=== PATIENT | female | born 1975 | race Caucasian/White ===

== ENCOUNTER 2020-07-23 07:50 | Outpatient (CLI) | payer OTHER, SELFPAY ==
--- NOTE | ~2020-07-23 | MM_ITS ---
EXAMINATION: MM screening ying BI w louie HISTORY: Screening mammogram TECHNIQUE: Craniocaudal and mediolateral oblique 3-D tomosynthesis images were obtained and synthetic 2-D images were generated. Right rotated lateral cc view. CAD analysis was submitted and interpreted . COMPARISON: No prior mammogram is available for comparison at this institution. BREAST PARENCHYMAL COMPOSITION: There are scattered areas of fibroglandular density. FINDINGS: There is no evidence of suspicious mass, calcification, or architectural distortion to sugg est malignancy in either breast. There has been no suspicious interval change. IMPRESSION: 1. No mammographic evidence of malignancy. 2. Recommend routine screening mammography in one year. BI-RADS Category 1: Negative Reviewed, dictated and finalized at location B.
== END 2020-07-23 07:51 | disposition home or self-care (01) ==
LOC: ANHIMG 07:52
PROVIDERS: PCP Family Medicine; Visit Provider Obstetrics & Gynecology
DX: Z12.31 Encounter for screening mammogram for malignant neoplasm of breast (principal)
CPT/HCPCS: 77063; 77067

== ENCOUNTER 2021-08-17 09:10 | Outpatient (CLI) | payer BC, SELFPAY ==
--- NOTE | ~2021-08-17 | MM_ITS ---
EXAMINATION: MM screening ying BI w louie HISTORY: Screening mammogram TECHNIQUE: Craniocaudal and mediolateral oblique 3-D tomosynthesis images were obtained and synthetic 2-D images were generated. CAD analysis was submitted and interpreted. COMPARISON: 07/23/2020 bilateral digital screening mammogram BREAST PARENCHYMAL COMPOSITION: The breasts are heterogeneously dense, which may obscure small masses . FINDINGS: Approximately 9 mm mass is noted in the subareolar area of the left breast. Diagnostic left mammogram and left breast ultrasound examination are recommended. Otherwise there is no evidence of suspicious mass, calcification, or architectural distortion to sugg est malignancy in either breast. There has been no other suspicious interval change. IMPRESSION: 1. New approximately 9 mm subareolar left breast mass 2. Diagnostic left mammogram and left breast ultrasound examination are recommended. BI-RADS Category 0: Incomplete: Needs additional imaging evaluation. Reviewed, dictated and finalized at location A. IMPRESSION: 1. New approximately 9 mm subareolar left breast mass 2. Diagnostic left mammogram and left breast ultrasound examination are recomme nded. BI-RADS Category 0: Incomplete: Needs additional imaging evaluation.
== END 2021-08-17 09:11 | disposition home or self-care (01) ==
LOC: ANHIMG 09:12
PROVIDERS: PCP Family Medicine; Visit Provider Obstetrics & Gynecology
DX: Z12.31 Encounter for screening mammogram for malignant neoplasm of breast (principal); R92.8 Other abnormal and inconclusive findings on diagnostic imaging of breast
CPT/HCPCS: 77063; 77067

== ENCOUNTER 2021-08-31 13:19 | Outpatient (CLI) | payer BC, SELFPAY ==
--- NOTE | ~2021-08-31 | MMUS_ITS ---
EXAMINATION: MM diagnostic ying LT w louie, US breast LT limited HISTORY: Approximately 9 mm new subareolar mass reported on 08/17/2021 screening mammogram TECHNIQUE: Additional 3-D tomosynthesis images of the left breast were performed and synthetic 2-D im ages were generated. CAD analysis was submitted and interpreted. High resolution subareolar left [facility] ultrasound was performed. COMPARISON: 08/17/2021 screening mammogram FINDINGS: MAMMOGRAPHIC FINDINGS: There is a new 12 mm subareolar mass, the margins are not completely circumscribed; this is new since 07/23/2020. ULTRASOUND: In the subareolar left breast there is a parallel circumscribed 8.7 x 14.4 mm multi septated cyst wit h through transmission posterior enhancement IMPRESSION: 1. Benign finding 2. Routine mammographic screening is recommended BI-RADS Category 2: Benign finding(s). Reviewed, dictated and finalized at location A. OSING MACHINE OPERATOR/TENDER IMPRESSION: 1. Benign finding 2. Routine mammographic screening is recommended BI-RADS Category 2: Benign finding(s).
== END 2021-08-31 13:20 | disposition home or self-care (01) ==
PROVIDERS: PCP Family Medicine; Visit Provider Obstetrics & Gynecology
DX: R92.8 Other abnormal and inconclusive findings on diagnostic imaging of breast (principal)
CPT/HCPCS: 76642; 77061; 77065; G0279

== ENCOUNTER 2022-10-20 07:36 | Outpatient (CLI) | payer BC, SELFPAY ==
--- NOTE | ~2022-10-20 | MM_ITS ---
EXAMINATION: MM screening [facility] BI w louie HISTORY: Screening mammogram TECHNIQUE: Craniocaudal and mediolateral oblique 3-D tomosynthesis images were obtained and synthetic 2-D images were generated. CAD analysis was submitted and interpreted. COMPARISON: 08/31/2021 diagnostic left mammogram and limited left breast ultrasound BREAST PARENCHYMAL COMPOSITION: The breasts are heterogeneously dense, which may obscure small masses . FINDINGS: There is a new circumscribed approximately 5 x 7.5 mm mass in the inner subareolar area of the right breast. Diagnostic right mammogram is right breast ultrasound examination are recommended. Otherwise there is no evidence of suspicious mass, calcification, or architectural distortion to sugg est malignancy in either breast. There has been no other suspicious interval change. IMPRESSION: 1. New approximately 5 x 7.5 mm circumscribed mass in the inner subareolar area of the right breast 2. Diagnostic right mammogram and right breast ultrasound examination are recommended. BI-RADS Category 0: Incomplete: Needs additional imaging evaluation. Reviewed, dictated and finalized at location A. ING MACHINE OPERATOR IMPRESSION: 1. New approximately 5 x 7.5 mm circumscribed mass in the inner subareolar area of the right breast 2. Diagnostic right mammogram and right breast ultrasound examination are recom mended. BI-RADS Category 0: Incomplete: Needs additional imaging evaluation.
== END 2022-10-20 07:37 | disposition home or self-care (01) ==
LOC: ANHIMG 07:37
PROVIDERS: PCP Family Medicine; Visit Provider Obstetrics & Gynecology
DX: Z12.31 Encounter for screening mammogram for malignant neoplasm of breast (principal); R92.8 Other abnormal and inconclusive findings on diagnostic imaging of breast
CPT/HCPCS: 77063; 77067

== ENCOUNTER 2022-11-10 13:48 | Outpatient (CLI) | payer BC, SELFPAY ==
--- NOTE | ~2022-11-10 | MMUS_ITS ---
EXAMINATION: MM diagnostic ying RT w louie, US breast RT limited HISTORY: Right breast mass on screening mammogram TECHNIQUE: Additional 3-D tomosynthesis images of the right breast were performed and synthetic 2-D i mages were generated. CAD analysis was submitted and interpreted. High resolution limited right breas t ultrasound was performed. COMPARISON: 10/20/2022, 08/17/2021, 07/23/2020 FINDINGS: MAMMOGRAPHIC FINDINGS: There is an 8 mm oval, obscured, mass at the 3:00 location adjacent to the nipple. No suspicious calc ification or architectural distortion are identified. ULTRASOUND: There is a 7 mm cyst at the 3:00 location adjacent to the nipple corresponding to the mammographic fi nding in question. IMPRESSION: 1. No mammographic or sonographic evidence of malignancy. 2. Recommend routine screening mammography in one year. BI-RADS Category 2: Benign finding(s). Reviewed, dictated and finalized at location A. HOME CAREGIVER IMPRESSION: 1. No mammographic or sonographic evidence of malignancy. 2. Recommend routine screening mammography in one year. BI-RADS Category 2: Benign finding(s).
== END 2022-11-10 13:49 | disposition home or self-care (01) ==
LOC: ANHIMG 13:52
PROVIDERS: PCP Family Medicine; Visit Provider Obstetrics & Gynecology
DX: R92.8 Other abnormal and inconclusive findings on diagnostic imaging of breast (principal)
CPT/HCPCS: 76642; 77061; 77065; G0279

== ENCOUNTER 2023-12-27 15:03 | Outpatient (CLI) | payer BC, SELFPAY ==
--- NOTE | ~2023-12-27 | MM_ITS ---
EXAMINATION: MM screening ying BI w louie HISTORY: Screening mammogram TECHNIQUE: Craniocaudal and mediolateral oblique 3-D tomosynthesis images were obtained and synthetic 2-D images were generated. CAD analysis was submitted and interpreted. COMPARISON: 11/10/2022 diagnostic bilateral mammogram and limited right breast ultrasound 10/20/2022 bilateral screening mammogram 08/31/2021 diagnostic left mammogram and limited left breast ultrasound 08/17/2021 bilateral screening mammogram BREAST PARENCHYMAL COMPOSITION: The breasts are heterogeneously dense, which may obscure small masses . FINDINGS: There is no evidence of suspicious mass, calcification, or architectural distortion to sugg est malignancy in either breast. There has been no suspicious interval change. IMPRESSION: 1. No mammographic evidence of malignancy. 2. Recommend routine screening mammography in one year. BI-RADS Category 1: Negative Reviewed, dictated and finalized at location A. CTOR OF CARDIOLOGY
== END 2023-12-27 15:04 | disposition home or self-care (01) ==
PROVIDERS: PCP Family Medicine; Visit Provider Obstetrics & Gynecology
DX: Z12.31 Encounter for screening mammogram for malignant neoplasm of breast (principal)
CPT/HCPCS: 77063; 77067

== ENCOUNTER 2024-12-24 07:46 | Outpatient (CLI) | payer BC, SELFPAY ==
--- OUTSIDE RECORDS SUMMARY | 2024-12-24 07:51 | XMS_ITS | Continuity of Care Document ---
Author Organization [facility] Address [address] [place] [address] [address] [place] [address] Phone Care Team Providers Care Bottle Line Worker Name Role Phone Howell OD, Aldo Unavailable Unavailable Procedures Procedure Date Eye Exam, New Patient Advance Directives Directive Yes / No Effective Date File Name No Information Encounters Encounter Description Practice Location Reason(s) For Visit Diagnoses Date Provider Providers Copied on Encounter [facility], [address] [place] [address] [address], [place], [place], [id number], [place] tel:[phone] [facility] No Information 2-200 9 Howell OD Aldo. [address] , [address], [place], [address], [place]. tel:[phone] Family History Family Member Type Diagnosis Age At Onset No Information Payers Payer name Insurance type Covered alliance party ID Authoriza tion(s) BCBS [place] Out [place] [id number] Social History Type Description Quantity Date Captured Comments Sex Female Smoking Status No Information Chief Complaint And Reason For Visit No Information Reason For Referral Reason For Referral No Information History Of Present Illness Encounter Date Complaint History Of Prese nt Illness No Information Functional Status Date Functional Assessmen t No Information Instructions Date Instruction Additional Infor mation No Information Assessments Type Assessment Date No Information Patient Care Teams Name Effective Dates (start - stop) Status Members No Information
--- OUTSIDE RECORDS SUMMARY | 2024-12-24 07:51 | XMS_ITS ---
Author Organization [facility] Address [address] [facility] [address] [place] [address] Care Team Providers Care Cosmetic Sales Name Role Phone zzzzMigration, zzzzProvider Unavailable Unav ailable REASON FOR VISIT EMR-Lopez Encounters Encounter Location Date Provider Diagnosis [facility] [address] [facility] [address] [place] [address] 08/11/2023 zzzzProvider zzzzMigration Plan Of Treatment Medication Medication Name Sig Start Date Stop Date Notes Norvasc 2.5 MG take 1 tablet (2.5 m g) by oral route once daily for 30 days Oral 1 for 30 02/15/2017 04/16/2017 Progress Notes * Evangelina QUEEN ADOB:1975 ( 49 yo F)Acc No.[id number]:08/11/2023 Patient: Evangelina VICENTE :1975 A ge:47 Y S ex:Female Phone: Address:[address] [place] [address] [place], [address] * Refills Stop Norvasc Tablet, 2.5 MG, Oral, 30, take 1 tablet (2.5 mg) by oral route once daily for 30 days, , 30 Subjective: * Chief Complaints: * E MR-Lopez * Medical History: * Surgical History: * Hospitalization/Major Diagno stic Procedure: * Medications: Objective: * Vitals: * Physical Examination: Assessment: Plan: * Treatment: * Procedure Codes: * * Date:
--- OUTSIDE RECORDS SUMMARY | 2024-12-24 07:52 | XMS_ITS | Patient Health Record ---
Author Organization [facility] Address [address] [facility] [address] [place] [address] Support Name Relationship Address Phone Evangelina Queen Guarantor Unknown Unavailable Allergies No Known Allergies Reason For Referral No Information Problems Problem Type SNOMED Code ICD Code Onset Dates Problem Status W/U Status Risk Notes Problem Raynaud's disease (256495262) Raynaud's syndrome without gangrene (I73.00) 8 Active confirmed Problem Scoliosis (610432352) Scoliosis, unspecified (M41.9) Active confirmed Problem Hand pain (56095871) Pain in unspecified hand (M79.643) Active confirmed Problem Abnormal immunology finding (911727473) Other specified abnormal immunological findings in serum (R76.8) 8 Active confirmed Plan Of Treatment No Information Insurance Providers Payer Name Payer Address Payer Phone Subscriber Number Group Number Insured Name Patient Relationship to Insured Coverage Start Date Coverage End Date Aetna - Commercial [address] [place] [address] [id number] BretLeopoldo riveraa Self - patient is the insured Aetna - Choice/OA [address] [place] [address] [id number] Leopoldo Queena Self - patient is the insured 7 Medical (General) History Surgical History Surgery Date(Month/Year) Hysterectomy; 2017-02-15
--- OUTSIDE RECORDS SUMMARY | 2024-12-24 07:52 | XMS_ITS ---
Author Organization [facility] Address [address] [facility] [address], [place] [address] Care Team Providers Care Kitchen Lead Name Role Phone zzzzMigration, zzzzProvider Unavailable Unav ailable Allergies No Known Allergies REASON FOR VISIT [facility] Encounters Encounter Location Date Provider Diagnosis [facility] [address] [address] [place] [address] 08/12/2023 zzzzProvider zzzzMigration Plan Of Treatment No Information Progress Notes * Evangelina QUEEN ADOB:1975 ( 49 yo F)Acc No.[id number]:08/12/2023 Patient: Evangelina VICENTE :1975 A ge:47 Y S ex:Female Phone: Address:[address] [place] [address] [place], [address] Subjective: * Chief Complaints: * E MR-Lopez * Medical History: * Surgical History: H ysterectomy; 2017-02-15 * Hospitalization/Major Diagno stic Procedure: * Family History: M igrated Family History: Brothers Notes: 53 healthy, 50 healthy, 36 healthy , Father Notes: 89 2 strokes, hip replacement , Mother Notes: 73 raynauds, arthritis , Sisters Notes: 54 RA, 48 healthy . * Social History: M igrated Social History: M igrated Social History: :: 1 Daughter , :: 1 Son , :: Carbon monoxide detectors-PRESENT , :: Seatbelt-WEARS , :: Smoke detectors-PRESENT , Marital Status :: , Occupation :: Florist , Substance Use :: Nonsmoker. * Medications: * Allergies: N .K.D.A.no[Allergies Verified] Objective: * Vitals: * Physical Examination: Assessment: Plan: * Treatment: * Procedure Codes: * * Date:
== END 2024-12-24 07:47 | disposition home or self-care (01) ==
LOC: ANHAUDIO 07:46
PROVIDERS: PCP Family Medicine; Visit Provider Family Medicine
DX: H90.3 Sensorineural hearing loss, bilateral (principal)
CPT/HCPCS: 92557; 92567

== ENCOUNTER 2025-01-09 07:15 | Outpatient (CLI) | payer BC, SELFPAY ==
--- NOTE | ~2025-01-09 | MM_ITS ---
EXAMINATION: MM screening ying BI w louie HISTORY: Screening TECHNIQUE: Craniocaudal and mediolateral oblique 3-D tomosynthesis images were obtained and synthetic 2-D images were generated. CAD analysis was submitted and interpreted. COMPARISON: Comparison to multiple prior studies sequentially, with oldest reviewed study dated 11/2019. BREAST PARENCHYMAL COMPOSITION: Dense: The breasts are heterogeneously dense, which may obscure small masses FINDINGS: There is no evidence of suspicious mass, calcification, or architectural distortion to sugg est malignancy in either breast. There has been no suspicious interval change. IMPRESSION: 1. No mammographic evidence of malignancy. 2. Recommend routine screening mammography in one year. BI-RADS Category 1: Negative Reviewed, dictated and finalized at location B.
--- OUTSIDE RECORDS SUMMARY | 2025-01-09 07:23 | XMS_ITS | Continuity of Care Document ---
Author Organization [facility] Address [address] [place] [address] [address] [place] [address] Phone Care Team Providers Care Rn Medical Inpatient Services Name Role Phone Howell OD, Aldo Unavailable Unavailable Procedures Procedure Date Eye Exam, New Patient Advance Directives Directive Yes / No Effective Date File Name No Information Encounters Encounter Description Practice Location Reason(s) For Visit Diagnoses Date Provider Providers Copied on Encounter [facility], [address] [place] [address] [address], [place], [place], [id number], [place] tel:[phone] SEC [facility] No Information 2-200 9 Howell OD Aldo. [address] , [address], [place], [address], [place]. tel:[phone] Family History Family Member Type Diagnosis Age At Onset No Information Payers Payer name Insurance type Covered constitution party ID Authoriza tion(s) BCBS [place] Out Of [place] [id number] Social History Type Description Quantity Date Captured [...]
== END 2025-01-09 07:16 | disposition home or self-care (01) ==
LOC: ANHIMG 07:18
PROVIDERS: PCP Family Medicine; Visit Provider Obstetrics & Gynecology
DX: Z12.31 Encounter for screening mammogram for malignant neoplasm of breast (principal)
CPT/HCPCS: 77063; 77067

== ENCOUNTER 2025-03-10 00:59 | Day surgery (SDC) | payer BC, SELFPAY ==
[2025-02-27 14:15] VITALS: BMI 20.2
--- OUTSIDE RECORDS SUMMARY | 2025-03-10 01:11 | XMS_ITS | Continuity of Care Document ---
Author Organization [facility] Address [address] [place] [address] [address] [place] [address] Phone Care Team Providers Care Lap Machine Tender Name Role Phone Howell OD, Aldo Unavailable Unavailable Procedures Procedure Date Eye Exam, New Patient Advance Directives Directive Yes / No Effective Date File Name No Information Encounters Encounter Description Practice Location Reason(s) For Visit Diagnoses Date Provider Providers Copied on Encounter [facility], [address] [place] [address] [address], [place], [place], [address], [place] tel:[phone] [address] [facility] No Information 2-200 [address] Howell OD Aldo. [address] , [address], [place], [address], [place]. tel:[phone] Family History Family Member Type Diagnosis Age At Onset No Information Payers Payer name Insurance type Covered constitution party ID Authoriza tion(s) [place]BS [place] [id number] Social History Type Description Quantity Date Captured [...]
--- OUTSIDE RECORDS SUMMARY | 2025-03-10 01:11 | XMS_ITS | Patient Health Record ---
Author Organization [facility] Address [address] [facility] [address] [place] [address] Support Name Relationship Address Phone Evangelina Queen Guarantor Unknown Unavailable Allergies No Known Allergies Reason For Referral No Information Problems Problem Type SNOMED Code ICD Code Onset Dates Problem Status W/U Status Risk Notes Problem Raynaud's syndrome without gangrene (I73.00) 8 Active confirmed Problem Scoliosis (553202405) Scoliosis, unspecified (M41.9) Active confirmed Problem Hand pain (90408245) Pain in unspecified hand (M79.643) Active confirmed Problem Abnormal immunology finding (345400353) Other specified abnormal immunological findings in serum (R76.8) 8 Active confirmed Plan Of Treatment No Information Insurance Providers Payer Name Payer Address Payer Phone Subscriber Number Group Number Insured Name Patient Relationship to Insured Coverage Start Date Coverage End Date Aetna - Commercial [address] [place] [address] [id number] Evangelina Queen Self - patient is the insured Aetna - Choice/OA [address] [place] [address] [id number] Evangelina Queen Self - patient is the insured 7 Medical (General) History Surgical History Surgery Date(Month/Year) Hysterectomy; 2017-02-15
--- NOTE | 2025-03-10 07:31 | WPDANESEPPF ---
Anes - Initial Pre Proc Eval Procedure: Operation Date: 03/10/25 08:30 Proposed Procedures p Screening Colonoscopy - Mart Rod MD Date/Time: 03/10/25 07:31 Surgeon: Mart Rod MD Pre Op Diagnosis: Screening Patient Data Age: 49 Gender: F Height: 1.68 m Weight: 57 kg Allergies Allergy/AdvReac Type Severity Reaction Status Date / Time oxycodone (From Percocet) Allergy Intermediate vomiting Verified 03/10/25 07:43 acetaminophen AdvReac Severe N/V Verified 03/10/25 07:43 morphine AdvReac Unknown severe Verified 03/10/25 07:43 nausea and vomiting OXYCODONE HCL AdvReac Severe N/V Uncoded 03/10/25 07:43 Home Medications Medication Instructions Recorded Confirmed Type estradiol 0.025 mg/24 hr 1 patch transdermal 2XW 06/22/20 02/27/25 History semiweekly transdermal patch mirabegron 50 mg tablet,extended 50 mg PO DAILY 02/27/25 02/27/25 History release 24 hr oxybutynin chloride 10 mg 10 mg PO DAILY 02/27/25 02/27/25 History tablet,extended release 24 hr Patient hx anesthesia problems: none Family hx anesthesia problems: none Results Review: All pre-operative results and documents have been reviewed as part of the pre-operative evaluation. [facility] Past Medical History Medical History H/O metrorrhagia Surgical History Surgical History S/P cholecystectomy H/O: hysterectomy Family History Family History Sibling Family history of rheumatoid arthritis Father Cerebrovascular accident Family history of gallbladder disease Other Diabetes mellitus Social History Social History (Updated 12/15/24 @ 14:10 by Poornima Schumacher) Social History: Smoking status: Never smoker Second hand tobacco smoke exposure: No Alcohol intake: never Substance use: never Substance use type: does not use Do You Feel Safe in your Home?: Yes Lack of Transportation: No Lack of Food: Never True Current Housing: I Have Housing Concerned About Future Housing: No Difficulty Paying Gas/Electric Bills: No Difficulty Paying for Meds: No Currently Unemployed: No Education: Don't Know Difficulty w/ Childcare or Family Care: No Living arrangements: with family Occupation/Education: occupation Gender identity (if verbalized by the patient): Female Sexual Orientation (if Verbalized by the Patient): Straight or Heterosexual Spiritual care concerns: No Anes - Eval Final PreProcedure Day of Procedure 03/10/25 07:31 Patient weight: normal Heart: regular rate and rhythm Lungs: clear to auscultation and normal air movement Airway: Mallampati scale class II Neurological: alert and oriented Last oral intake: >/= 8 hours ASA classification: I Emergent: no Anesthetic plan: proceed Anesthesia type and monitoring: general GIVS and standard monitoring Results Review: All pre-operative results and documents have been reviewed as part of the pre-operative evaluation. Informed Consent: The patient's anesthetic plan and its attendant risks and benefits were discussed with the patient/family/POA. Questions were solicited and answers provided to the satisfaction of the patient/family/POA.
[2025-03-10 07:43] VITALS: BP 95/41; PULSE 90; RESP 18; TEMP 36.2; O2SAT 98
[2025-03-10] MEDS: LACTATED RINGERS 1,000 ML 150 ML IV CONT (07:52)
--- NOTE | 2025-03-10 08:12 | PM.HPGS ---
History of Present Illness History of Present Illness Consent: Risks, benefits, and alternatives have been discussed and questions answered. Patient agrees to proceed with procedure. Chief complaint: Screening Narrative: Evangelina Queen is a 49 year old female here for screening colonoscopy, last one more than 10 years ago Review of Systems Review of Systems: All systems reviewed & are unremarkable except as noted in HPI and below PMFSH Past Medical History Medical History (Updated 03/10/25 @ 08:12 by Mart Rod MD) Colon cancer screening H/O metrorrhagia Surgical History Surgical History S/P cholecystectomy H/O: hysterectomy Family History Family History Sibling Family history of rheumatoid arthritis Father Cerebrovascular accident Family history of gallbladder disease Other Diabetes mellitus Social History Social History (Updated 12/15/24 @ 14:10 by Poornima Schumacher) Social History: Smoking status: Never smoker Second hand tobacco smoke exposure: No Alcohol intake: never Substance use: never Substance use type: does not use Do You Feel Safe in your Home?: Yes Lack of Transportation: No Lack of Food: Never True Current Housing: I Have Housing Concerned About Future Housing: No Difficulty Paying Gas/Electric Bills: No Difficulty Paying for Meds: No Currently Unemployed: No Education: Don't Know Difficulty w/ Childcare or Family Care: No Living arrangements: with family Occupation/Education: occupation Gender identity (if verbalized by the patient): Female Sexual Orientation (if Verbalized by the Patient): Straight or Heterosexual Spiritual care concerns: No Meds Home Medications and Allergies Home Medications Medication Instructions Recorded Confirmed Type estradiol 0.025 mg/24 hr 1 patch transdermal 2XW 06/22/20 02/27/25 History semiweekly transdermal patch mirabegron 50 mg tablet,extended 50 mg PO DAILY 02/27/25 02/27/25 History release 24 hr oxybutynin chloride 10 mg 10 mg PO DAILY 02/27/25 02/27/25 History tablet,extended release 24 hr Allergies Allergy/AdvReac Type Severity Reaction Status Date / Time oxycodone (From Percocet) Allergy Intermediate vomiting Verified 03/10/25 07:43 acetaminophen AdvReac Severe N/V Verified 03/10/25 07:43 morphine AdvReac Unknown severe Verified 03/10/25 07:43 nausea and vomiting OXYCODONE HCL AdvReac Severe N/V Uncoded 03/10/25 07:43 Vital Signs Vital Signs - 24 hr 03/10/25 07:43 Temperature 97.2 F L Pulse Rate 90 Respiratory Rate 18 Blood Pressure 95/41 L Pulse Oximetry 98 Oxygen Delivery Room Air Exam Const: General: comfortable and no acute distress HENMT: Face/Nose/Sinus: Normal nares present Eyes: General: appearance normal, both eyes and all related structures Neck: Neck: no JVD Resp: Auscultation: clear to auscultation bilaterally Cardio: Rate: regular rate Rhythm: regular rhythm GI: Inspection: non-distended GI Palp: Yes Soft to palpation Skin: General skin exam: normal color Neuro: General: gait normal Speech: normal speech Extrem: General: normal to inspection Psych: Mental Status: mental status grossly normal Assessment and Plan Assessment and plan (1) Colon cancer screening: Code(s): Z12.11 - Encounter for screening for malignant neoplasm of colon Status: Acute Assessment and Plan: colonoscopy
[2025-03-10 08:29] VITALS: BP 82/39; PULSE 82; RESP 20; O2SAT 100
[2025-03-10 08:39] VITALS: BP 86/39; PULSE 75; RESP 15; O2SAT 100
[2025-03-10 08:49] VITALS: BP 92/51; PULSE 70; RESP 24; O2SAT 100
== END 2025-03-10 08:54 | disposition home or self-care (01) ==
PROVIDERS: PCP Family Medicine; Referring Provider Family Medicine; Visit Provider Internal Medicine Gastroenterology
PROC: 0DJD8ZZ Inspection of Lower Intestinal Tract, Via Natural or Artificial Opening Endoscopic (ICD-10-PCS; CPT 45378; principal; 2025-03-10 08:30)
DX: Z12.11 Encounter for screening for malignant neoplasm of colon (principal); K57.30 Diverticulosis of large intestine without perforation or abscess without bleeding
CPT/HCPCS: 45378; J2704; J7120